=== PATIENT | male | born 1985 | race African-American/Black ===

== ENCOUNTER 2016-11-20 05:26 | Day surgery (SDC) | payer BC ==
[2016-11-19 14:46] VITALS: BMI 47.4
[2016-11-20] VITALS (11 sets, daily range): BP systolic 109–143; BP diastolic 52–63; PULSE 77–100; RESP 12–18; Ht 177.8 cm; Wt 150.3 kg
[~2016-11-20] VITALS: Ht 177.8 cm; Wt 150.3 kg
[2016-11-20] MEDS ORDERED: LACTATED RINGER'S 1,000 ML IV SCH (06:00)
[2016-11-20] MEDS ORDERED: CEFAZOLIN 2 GM/50 ML (PMX) 50 ML IVPB SCH (06:00)
[2016-11-20] MEDS ORDERED: ESTR1TAB23 PO (06:36)
[2016-11-20] MEDS ORDERED: SPIR100T31 PO (06:36)
[2016-11-20] MEDS ORDERED: IBUP-1542 PO (06:36)
[2016-11-20] MEDS ORDERED: DIPH25CA6 PO (06:36)
[2016-11-20] MEDS ORDERED: MONT10TA21 PO (06:36)
[2016-11-20] MEDS ORDERED: CIME800T PO (06:36)
[2016-11-20] MEDS ORDERED: CETI10TA34 PO (06:36)
[2016-11-20] MEDS ORDERED: ELVI1TAB3 PO (06:36)
[2016-11-20] MEDS ORDERED: MEDR10TA2 PO (06:36)
[2016-11-20] MEDS ORDERED: DEPOEST IM (06:36)
[2016-11-20] MEDS ORDERED: ASPI81TA50 PO (06:36)
[2016-11-20] MEDS ORDERED: PROPOFOL 200 MG INJ ONE (07:00)
[2016-11-20] MEDS ORDERED: POLYMYXIN/BACITRACIN 1L IRRIG ONE (07:08)
[2016-11-20] MEDS ORDERED: BUPIVACAINE 0.5%/EPI (SDV) 30 ML INJ ONE (07:10)
[2016-11-20] MEDS ORDERED: EPINEPHrine 1 MG/ML 30 ML INJ ONE (07:10)
[2016-11-20] MEDS ORDERED: GENTAMICIN 80 MG INJ ONE (07:11)
--- NOTE | 2016-11-20 07:28 | HPN ---
Date/Time of Note Date/Time of Note DATE: 11/20/16 TIME: 07:28 Interval H&P Admission Note Pt. seen H&P reviewed: No system changes NAEL BOONE MD Nov 20, 2016 07:28
[2016-11-20] MEDS ORDERED: MIDAZOLAM 1 MG/ML 2 ML INJ ONE (07:39)
[2016-11-20] MEDS ORDERED: LIDOCAINE 2% (SDV) 5 ML INJ ONE (07:39)
[2016-11-20] MEDS ORDERED: PROPOFOL 20 ML ONE (07:39)
[2016-11-20] MEDS ORDERED: FENTAnyl 50 MCG/ML VIAL ONE (07:43)
[2016-11-20] MEDS ORDERED: CEFAZOLIN 1 GM INJ ONE (07:51)
[2016-11-20] MEDS ORDERED: FAMOTIDINE 20 MG INJ ONE (07:56)
[2016-11-20] MEDS ORDERED: DEXAMETHASONE 4 MG/ML 1 ML INJ ONE (07:56)
[2016-11-20] MEDS ORDERED: ONDANSETRON 4 MG INJ ONE (07:56)
[2016-11-20] MEDS ORDERED: BUPIVACAINE LIPOSOME/PF 266 MG/20 ML VIAL INFIL SCH (08:00)
[2016-11-20] MEDS ORDERED: BUPIVACAINE 0.5%/EPI (SDV) 30 ML INJ INJ ONE (08:03)
[2016-11-20] MEDS ORDERED: HYDROmorphONE 2 MG/ML SYG ONE (08:05)
[2016-11-20] MEDS ORDERED: DIPHENHYDRAMINE 50 MG INJ IV PRN (08:30)
[2016-11-20] MEDS ORDERED: FENTAnyl 50 MCG/ML VIAL IV PRN ×2 (08:30)
[2016-11-20] MEDS ORDERED: MEPERIDINE 25 MG INJ IV PRN (08:30)
[2016-11-20] MEDS ORDERED: PROCHLORPERAZINE 10 MG INJ IV PRN (08:30)
[2016-11-20] MEDS ORDERED: HYDROmorphONE (0.2 MG/ML) 10ML SYG IV PRN ×3 (08:30)
[2016-11-20] MEDS ORDERED: ONDANSETRON 4 MG INJ IV PRN ×2 (08:30→10:00)
[2016-11-20] MEDS ORDERED: OXYCODONE/ACETAMINOPHEN (5/325) TAB PO PRN ×2 (08:30)
[2016-11-20] MEDS ORDERED: morphine 2 MG INJ IV PRN (10:00)
[2016-11-20] MEDS ORDERED: HYDROCODONE/APAP (10/325) TAB PO PRN (10:00)
--- NOTE | 2016-11-20 10:09 | OPR ---
Date/Time of Note Date/Time of Note DATE: 11/20/16 TIME: 10:01 Operative Report Free Text/Dictation Plastic Surgery Operative Report Preoperative diagnosis: gender identity disorder Postoperative diagnosis: same Procedure: bilateral breast reconstruction Surgeon: delano Olmedo.: n/a Anesthesia:gen EBL:min IV fluids: per flow sheet Findings:n/a Complications: none Dispo:home Indications for procedure: Patient presents for bilateral breast reconstruction. The risks, benefits, alternatives of performing this procedure were discussed with the patient including the risks of bleeding, infection, wound healing problems, asymmetry, need for revision, need for MRI screening, and the patient states that she understands these risks and would like to proceed with the procedure. All questions were answered, no guarantees were given with regards to the outcome of this procedure. Description of procedure: The patient was brought to the operating room at [facility] where general anesthesia was induced and the patient was prepped and draped in usual sterile fashion. A total of 4 cc of 0.5% Marcaine with 1: 200,000 epinephrine were injected into the planned incision site in the inframammary fold of each breast. Next, a incision was made in the right incision site with a 15 blade, the electrocautery was used to dissect down to the pectoralis muscle. The pectoralis muscle was released on its inferior border. The subpectoral plane was entered, and then a pocket was created the subpectoral plane. Once an adequate pocket was created, the pectoralis muscle was released from lateral to medial. The breast was irrigated with antibiotic irrigation, hemostasis was achieved with the electrocautery, and then a 7 7 0 cc sizer was opened, rinsed with antibiotic irrigation, it was inserted into the right breast. The overall size was good however they were shaped modifications that need to be remade. The sizer was removed. The pocket was opened slightly laterally and medially. The sizer was removed. This gave the desired appearance of the breast. Therefore, the breast was irrigated with antibiotic irrigation once again, hemostasis was achieved with electrocautery, and attention was turned to the left breast where a similar procedure was carried out. An incision was made in the left incision site with a 15 blade, the electrocautery was used to dissect down to the pectoralis muscle. The pectoralis muscle was released on its inferior border. The subpectoral plane was entered, and then a pocket was created in the subpectoral plane. Once an adequate pocket was created, the pectoralis muscle was released from lateral to medial. The breast was irrigated with antibiotic irrigation, hemostasis was achieved with the electrocautery, and then a 7 7 0 cc sizer was rinsed with antibiotic irrigation, it was inserted into the left breast. The breast was inspected, additional modifications were made to the pocket, then the sizer was removed. A final round of hemostasis was carried out on both sides with the electrocautery, the breasts were irrigated with antibiotic irrigation, the skin was prepped with Betadine, gloves were changed, and then an [place] SRF 770 cc implant SN [id number] was opened, rinsed in antibiotic irrigation, and was inserted into the right breast with minimal touch technique. The same size and style implant serial number [id number] was opened, rinsed in antibiotic irrigation , and was inserted into the left breast with minimal touch technique. The patient was sat up on the operating room for a final time. Symmetry was good. 60 cc of diluted Exparel solution were injected into the breast. The incisions were then closed with a deep layer 3-0 Vicryl sutures on the deep tissue followed by 3-0 Vicryl sutures and 4-0 Monocryl sutures in the skin followed by glue. The patient tolerated the procedure well, there were no complications, follow-up information wound care instructions were given NAEL BOONE MD Nov 20, 2016 10:08
== END 2016-11-20 11:47 | disposition home or self-care (01) ==
LOC: SDS 05:26
PROVIDERS: ATTEND Surgery Plastic and Reconstructive Surgery
DX: F64.9 Gender identity disorder, unspecified (principal); E66.9 Obesity, unspecified; Z68.42 Body mass index [BMI] 45.0-49.9, adult
CPT/HCPCS: 19380; C1789; C9290; J0690; J1100; J1170; J1580; J2175; J2250; J2405; J3010; Z7512; Z7610; J0171